=== PATIENT | male | born 1970 | race Two or more races ===

== ENCOUNTER 2017-02-13 09:25 | Emergency (ER) | payer OTHER ==
[~2017-02-13] VITALS: Ht 182.9 cm; Wt 106.6 kg
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
[2017-02-13] MEDS ORDERED: METF500T4 PO (09:40)
[2017-02-13] MEDS ORDERED: INSU3INS6 SQ (09:40)
--- NOTE | 2017-02-13 09:40 | NUR ---
PT WAS TAKEN TO XRAY DEPT
[2017-02-13] MEDS ORDERED: IBUPROFEN 400 MG TABLET ONE (09:43)
--- NOTE | 2017-02-13 09:50 | NUR ---
PATIENT IS BACK FROM RADIOLOGY DEPARTMENT
[2017-02-13] MEDS ORDERED: IBUPROFEN 400 MG TABLET PO ONE (10:00)
[2017-02-13 10:51] VITALS: BP 142/90
--- NOTE | 2017-02-13 10:51 | NUR ---
Patient discharged to home in stable condition. Written and verbal after care instructions given. Patient verbalizes understanding of instruction.
== END 2017-02-13 10:51 | disposition home or self-care (01) ==
LOC: ER 09:27
DX: S09.90XA Unspecified injury of head, initial encounter (principal); S16.1XXA Strain of muscle, fascia and tendon at neck level, initial encounter; E11.9 Type 2 diabetes mellitus without complications; I10 Essential (primary) hypertension; Z79.4 Long term (current) use of insulin; V43.52XA Car driver injured in collision with other type car in traffic accident, initial encounter; Y93.89 Activity, other specified; Y92.89 Other specified places as the place of occurrence of the external cause; Y99.9 Unspecified external cause status
CPT/HCPCS: 70450-TC; 72125-TC; A4606; Z7610